=== PATIENT | female | born 1990 | race African-American/Black ===

== ENCOUNTER 2019-03-05 21:49 | Emergency (ER) | payer MEDICAID ==
[~2019-03-05] VITALS: Ht 162.6 cm; Wt 77.1 kg
--- NOTE | 2019-03-05 21:54 | NUR ---
ED Nurse Note: Pt arrived ambulatory into ED for complaint of pain 8/10 located on left ear, from abcess. Pt states it began earlier this week. Pain is non-radiating, aching.
[2019-03-05 21:55] VITALS: BP 135/84
--- NOTE | 2019-03-05 22:18 | Emergency Room Report ---
History of Present Illness General Chief Complaint: Skin Rash/Abscess Source: Patient Present Illness HPI This is a 28-year-old female with no significant past medical history. She presents with chief complaint of an abscess to the right ear area. Onset for last 2 days. Tender to palpation. No drainage. Similar abscess in her back before. Denies any other complaint. Pain 8 out of 10. Allergies: Coded Allergies: No Known Allergies (Unverified , 03/05/19) Patient History Past Medical History: see triage record, old chart reviewed Past Surgical History: none Pertinent Family History: none Social History: Denies: smoking Last Menstrual Period: 02/15/19 Now: No : 0 Para: 0 Immunizations: other Reviewed Nursing Documentation: PMH: Agreed; PSxH: Agreed Nursing Documentation-PMH Past Medical History: No Stated History Review of Systems Eye: Denies: eye pain, blurred vision ENT: Denies: ear pain, nose congestion, throat swelling Respiratory: Denies: cough, shortness of breath Cardiovascular: Denies: chest pain, palpitations Gastrointestinal: Denies: abdominal pain, diarrhea, nausea, vomiting Musculoskeletal: Denies: back pain, joint pain Skin: Denies: rash Neurological: Denies: headache, numbness Endocrine: Denies: increased thirst, increased urine Hematologic/Lymphatic: Denies: easy bruising All Other Systems: negative except mentioned in HPI Physical Exam Vital Signs Date Time Temp Pulse Resp B/P (MAP) Pulse Ox O2 Delivery O2 Flow Rate FiO2 03/05/19 21:53 98.8 86 18 135/84 (101) 100 Room Air Vitals normal Sp02 EP Interpretation: reviewed, normal General Appearance: well appearing, no apparent distress, alert Head: normocephalic, atraumatic Eyes: bilateral eye PERRL, bilateral eye EOMI ENT: hearing grossly normal, normal pharynx, other - 1.5 cm abscess next to the right tragus. Mild erythema Neck: full range of motion, supple, no meningismus Respiratory: chest non-tender, lungs clear, normal breath sounds Cardiovascular #1: regular rate, rhythm, no murmur Gastrointestinal: normal bowel sounds, non tender, no mass, no organomegaly, no bruit, non-distended Musculoskeletal: back normal, gait/station normal, normal range of motion Psychiatric: mood/affect normal Skin: warm/dry Procedures Incision and Drainage Incision and Drainage : Consent: Verbal Site: Right ear Blade Size: 11 I & D Procedure: betadine prep, sterile drapes applied Wound Location: face Anesthesia: 1% Lidocaine Patient Tolerated: Well Complications: None Progress Local anesthetic with 1% lidocaine without epinephrine. I made a 1 cm incision. There was amount of pus expressed. At the end there was some modest cheesy material expressed. I then try to remove some of the capsule. Patient tolerated procedure without any problem. Medical Decision Making Diagnostic Impression: Primary Impression: Abscess Additional Impression: Sebaceous cyst ER Course Patient with facial abscess. This is from an infected sebaceous cyst. No evidence of necrotizing fasciitis. No deep infection. Will discharge home. Last Vital Signs Date Time Temp Pulse Resp B/P (MAP) Pulse Ox O2 Delivery O2 Flow Rate FiO2 03/05/19 21:55 98.8 86 18 135/84 100 Room Air Status: improved Disposition: HOME, SELF-CARE Condition: Stable Scripts Ibuprofen* (MOTRIN*) 600 Mg Tablet 600 MG ORAL THREE TIMES A DAY, #30 TAB 0 Refills Prov: Milind Jordan MD 03/05/19 Trimethoprim/Sulfamethoxazole 160/800* (BACTRIM DS TABLET*) 1 Each Tablet 1 TAB ORAL Q12H, #14 TAB 0 Refills Prov: Milind Jordan MD 03/05/19 Patient Instructions: Abscess Additional Instructions: Keep wound clean. Wound with hydrogen peroxide first and then apply antibiotic ointment. Follow-up with your doctor in 3 to 5 days for recheck. Return if worse. Milind Jordan MD Mar 05, 2019 22:18
[2019-03-05] MEDS ORDERED: IBUPROFEN600 MG ORAL (22:38)
[2019-03-05] MEDS ORDERED: BACTRIM DS TAB1 EAC1 ORAL (22:38)
--- NOTE | 2019-03-05 22:38 | NUR ---
ED Nurse Note: Abcess drained by ERMD, wound cleaned and dressing provided by RN. Pt resting comfortably.
[2019-03-05 22:45] VITALS: BP 142/96
--- NOTE | 2019-03-05 22:45 | NUR ---
ED Nurse Note: Pt cleared by , Pt Jacinto/Edilma, VSS. shows no signs of acute distress. Discharge paperwork and prescriptions provided. pt verbalized understanding of all instructions. ID band removed. All belongings taken with patient.
== END 2019-03-05 22:45 | disposition home or self-care (01) ==
LOC: EMR 22:29
DX: H66.41 Suppurative otitis media, unspecified, right ear (principal); L72.3 Sebaceous cyst
CPT/HCPCS: 10060; 99283; Z7502